=== PATIENT | female | born 1940 | race Caucasian/White ===

== ENCOUNTER → 2018-11-30 | Day surgery (SDC) | payer MEDICARE, OTHER ==
[~2018-11-30] VITALS: Ht 154.9 cm; Wt 93.4 kg
[~2018-11-30] MED LIST: ATENOLOL25 MG PO; ESCITALOPRAM OX10 MG PO; FUROSEMIDE40 MG PO; GLIMEPIRIDE4 M1 PO; LEVEMIR FL100 UNIT/1 SQ; NOVOLOG FL100 UNIT/1 SQ; VITAMIN D5000 UNIT PO; XARELTO20 M1 PO; ZETIA10 MG PO
--- NOTE | ~2018-11-30 | O ---
[place], [place] OPERATIVE NOTE NAME: DESHAWN BARTON UNIT #: [id number] ROOM: DOCTOR: DOM TRAVIS MD BIRTHDATE: [birth year] DOS: 11/30/2018 PREOPERATIVE DIAGNOSIS: Cataract, left eye. POSTOPERATIVE DIAGNOSIS: Cataract, left eye. OPERATION: Extracapsular cataract extraction by phacoemulsification with posterior chamber intraocular lens implantation, left eye. ANESTHESIA: Monitored standby. OPERATIVE FINDINGS AND PROCEDURE: 2% Xylocaine topical anesthetic gel was applied to the eye in the preop area. The patient was taken to the operating room chlorhexidine scrub was then used to prepare the left eye surgical site and then the patient was draped in the standard fashion for sterile intraocular surgery. A time out procedure was performed verifying correct patient, correct site and corrects lens with Octavia Travis M.D. The operating microscope was swung into position and the lid speculum was inserted. Using a Leni paracentesis blade, a paracentesis was made through clear cornea. Viscoelastic was used to fill the anterior chamber. Using a metal keratome a 2.4 mm self-sealing clear corneal cataract incision was made temporally at the limbus. Using a pre-bent 25 gauge cystotome needle, a standard continuous curvilinear capsulorrhexis was performed. The anterior capsule was removed with forceps. The lens nucleus was hydrodissected and phacoemulsified in the posterior chamber. Cortical material was removed with the irrigation aspiration hand piece and the posterior capsule was then polished with a curet under irrigation. The posterior chamber and capsular bag were filled with viscoelastic. A posterior chamber intraocular lens manufactured by: [employer], Model #[id number], and 21.5 diopters in strength were then inserted into the posterior chamber and within the capsular bag using the lens cartridge and injector system. Viscoelastic was removed using the irrigation aspiration handpiece. The anterior chamber was filled with balanced salt solution through the paracentesis. Both the paracentesis site and cataract incisions were hydrated with BSS and verified to be water-tight and self-sealing. The incision checked to be water-tight using a Weck-Leny sponge. The integrity of the cataract wound and ocular tension were checked. Lid speculum and drapes were removed. The patient was transferred from the operating room to the recovery room in satisfactory condition. [place], [place] OPERATIVE NOTE NAME: DESHAWN BARTON UNIT #: [id number] ROOM: DOCTOR: DOM TRAVIS MD BIRTHDATE: [birth year] DOM TRAVIS MD CM:OPRECORD:OPERATIVE NOTE [id number] DOM TRAVIS MD 11/30/18 1002 interface
[2018-11-30 07:56] VITALS: BP 198/62
[2018-11-30 08:38] VITALS: BP 157/53
[2018-11-30 08:54] VITALS: BP 166/55
[2018-11-30 09:07] VITALS: BP 140/39
== END | disposition home or self-care (01) ==
LOC: SDC 11-24 03:20
DX: H25.812 Combined forms of age-related cataract, left eye (principal); J44.9 Chronic obstructive pulmonary disease, unspecified; I25.2 Old myocardial infarction; K21.9 Gastro-esophageal reflux disease without esophagitis; I11.0 Hypertensive heart disease with heart failure; I50.9 Heart failure, unspecified; E11.9 Type 2 diabetes mellitus without complications; E66.9 Obesity, unspecified; Z68.38 Body mass index [BMI] 38.0-38.9, adult; Z88.8 Allergy status to other drugs, medicaments and biological substances; Z88.3 Allergy status to other anti-infective agents; Z88.0 Allergy status to penicillin; Z91.013 Allergy to seafood; Z87.01 Personal history of pneumonia (recurrent); Z86.73 Personal history of transient ischemic attack (TIA), and cerebral infarction without residual deficits; Z95.818 Presence of other cardiac implants and grafts; Z95.1 Presence of aortocoronary bypass graft; Z87.891 Personal history of nicotine dependence; Z90.49 Acquired absence of other specified parts of digestive tract; Z98.890 Other specified postprocedural states; Z85.828 Personal history of other malignant neoplasm of skin

== ENCOUNTER → 2019-01-04 | Day surgery (SDC) | payer MEDICARE, OTHER ==
[~2019-01-04] VITALS: Ht 154.9 cm; Wt 95.3 kg
== END | disposition home or self-care (01) ==
LOC: SDC 12-29 10:15
DX: H25.9 Unspecified age-related cataract (principal); Z53.8 Procedure and treatment not carried out for other reasons